=== PATIENT | male | born 1945 | race African-American/Black ===

== ENCOUNTER 2017-04-21 17:10 | Inpatient (IN) | payer OTHER ==
[~2017-04-21] VITALS: Ht 172.7 cm; Wt 93.4 kg
--- NOTE | ~2017-04-21 | HC ---
[facility] [place] [address] CONSULTATION Name: AISHA JIMENES Room #: 437-P [facility] IN M.R.#: [id number] Admission: 04/21/17 Attend Phys: Goi Meehan MD Discharge: Date of : 41 Report #: [id number] THIS REPORT FOR: //name// CC: Robbie Meehan REASON FOR CONSULTATION: End-stage renal disease. REASON FOR PRESENTATION: Mental status changes. HISTORY OF PRESENT ILLNESS: The patient actually not able to provide me with any history. He is confused. The details of the history were obtained from his medical chart and from whatever pieces of information we have on the [facility] dialysis unit. The patient is an end-stage renal disease, for unclear reasons. He was started on dialysis per the nursing notes 3 weeks ago. He resides at the [facility]. He was brought to the emergency room with mental status changes. The details of the history of scarce. He is known to have very advanced colon cancer with liver metastasis and lymph node involvement. The details of the therapy are not clear to me. Because of his hypotension on presentation, he was admitted to the Intensive Care Unit for further evaluation and management. Again, the details of the history are not really available at this point. He is not able to provide us with any information. PAST MEDICAL HISTORY: 1. Listed in his past medical history of peptic ulcer disease. 2. End-stage renal disease. 3. Gout. 4. Colon cancer with metastasis to the liver and lymph nodes. 5. Anemia. 6. Diabetes mellitus. 7. Hyperlipidemia. SOCIAL HISTORY: He resides at [facility]. No other details available. FAMILY HISTORY: Unknown. REVIEW OF SYSTEMS: Completely unobtainable given the patient history. MEDICATIONS: Listed in the [facility] is , Nephrocaps, docusate, atorvastatin, acetaminophen, Epogen, milk of magnesia, oxycodone. PHYSICAL EXAMINATION: GENERAL: He was disoriented to time and place, person. VITAL SIGNS: Blood pressure is currently 105/50. He is afebrile, pulse rate is 79 HEAD AND NECK: Dry mucous membranes. CHEST: No crackles. [facility] [address] [place] [address] CONSULTATION Name: AISHA JIMENES Room #: 437-P [facility] IN ..#: [id number] Admission: 04/21/17 Attend Phys: Gio Meehan MD Discharge: Date of : 41 Report #: [id number] CARDIOVASCULAR: Regular with no rub detected. ABDOMEN: Soft, nontender. LOWER EXTREMITIES: No edema. LABORATORY DATA: Reviewed. He has a white blood cell count of 28,000. Hemoglobin is 8.2. His chemistry from yesterday revealed a sodium of 136, potassium 4.1, BUN is 28 and a creatinine of 6.4. Urinalysis studies are not available. Head CT showed chronic age-related changes. Chest x-ray was clear. ASSESSMENT, IMPRESSION AND PLAN: 1. End-stage renal disease. 2. Metastatic stage IV lung cancer. 3. Acute mental status issue. 4. Leukocytosis. 5. Anemia. 6. Dialysis will be addressed as usual. 7. Obtain further details about the patient's history from the family. 8. Neurological workup. 9. Discontinue IV fluids. 10. Septic workup for his elevated white blood cell count. 11. Obtain oncological history regarding his lung status. If it is true that the patient has stage IV lung cancer, palliative and hospice care would seems to be reasonable. <ELECTRONICALLY SIGNED> By: Will Ferraro MD 04/25/17 0607 0537 0651 Narciso Lopez MD /nt
--- NOTE | ~2017-04-21 | HC ---
[facility] [place] [address] CONSULTATION Name: AISHA JIMENES Room #: 247-P ADM IN M.R.#: [id number] Admission: 04/21/17 Attend Phys: Gio Meehan MD Discharge: Date of : 41 Report #: [id number] THIS REPORT FOR: //name// CC: Robbie Meehan DATE OF SERVICE: 04/22/2017 DATE OF ADMISSION: 04/21/2017. DATE OF CONSULTATION: 04/22/2017. ATTENDING PHYSICIAN: Dr. Meehan. REASON FOR EVALUATION: Hospital/facility-related pneumonia in the setting of advanced age lung cancer. HISTORY OF PRESENT ILLNESS: Chart reviewed, patient examined. This is a 71-year-old man who resides at a facility who was noted to be more encephalopathic with confusion and agitation past few days. Also noted to have some poor p.o. 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 He is on chemotherapy. In addition to that, he has been on dialysis. At this point, he is unable to give too much history, more or less wants to be left alone. Denies significant amount of pain. Evaluation including chest x-ray showed a right pleural effusion with lower lobe consolidation. White count was elevated at 28,000. Lactic acid 2.2. He was then started on empiric antimicrobials, levofloxacin and piperacillin/tazobactam. He has been afebrile since admission. ALLERGIES: None known. CURRENT MEDICATIONS: Include ondansetron, oxycodone . He had a dose of levofloxacin and Zosyn. PAST MEDICAL HISTORY: As noted above. Also, has a history of colon cancer; end-stage renal disease, on dialysis thrice weekly; diabetes mellitus; hypertension; previous history of pneumonia. SOCIAL HISTORY: Former smoker. No ethanol. FAMILY HISTORY: Noncontributory. REVIEW OF SYSTEMS: Limited due to the patient's situation. PHYSICAL EXAMINATION: GENERAL: Chronically ill, undernourished. He is lying in right lateral [facility] [address] [place] [address] CONSULTATION Name: AISHA JIMENES Room #: 247-P [facility] IN ..#: [id number] Admission: 04/21/17 Attend Phys: Gio Meehan MD Discharge: Date of : 41 Report #: [id number] decubitus position. Somewhat disengaged. VITAL SIGNS: Temperature 97.5, pulse 79, respirations 15, blood pressure 105/50. SKIN: Warm, dry, no rashes. HEENT: Otherwise, unremarkable. NECK: Supple. LUNGS: Scattered coarse breath sounds. HEART: Regular, has a soft systolic murmur. ABDOMEN: Slightly distended, soft. There are no overt peritoneal signs. GENITOURINARY: Deferred. RECTAL: Deferred. LABORATORY DATA: Initial CBC: White count of 28.1, H and H 8.2 and 26.4, platelets of 315. Repeat showed a white count 26.5, hemoglobin 7, hematocrit 22.9, and platelets 272. Electrolytes: Sodium 137, potassium 4.3, chloride 102, bicarbonate is 27, anion gap of 8, BUN and creatinine 30 and 6.5. Lactic acid 2.2. Hepatic function, AST of 114, ALT of 29, albumin of 21, total protein of 7.7. IMAGING STUDIES: Chest x-ray showed right pleural effusion with right lower lobe consolidation. ASSESSMENT: Right-sided pneumonitis in the setting of multiorgan dysfunction including most recently encephalopathy, underlying medical issues are marked as well. We will continue combination of empiric antimicrobial therapy adjusted for his renal insufficiency dose with vancomycin, continue the Zosyn for now. I do not think sputum forthcoming at this point. We will see how he does clinically. I did encourage him to cough. He is certainly at risk for worsening clinical situation. We will follow expectantly. <ELECTRONICALLY SIGNED> By: Barry Brown MD 04/23/17 0501 0615 1917 Barry Brown MD /nt
--- NOTE | ~2017-04-21 | CNG ---
[facility] [place] [address] CYTO-NONGYN REPORT PROCEDURE Name: AISHA JIMENES Room #: 437-P ADM IN M.R.#: [id number] Admission: 04/21/17 Date of : 41 Discharge: Report #: [id number] Path Case #: [id number] CYTOPATHOLOGY REPORT COLLECTION DATE: 04/24/2017 RECEIVED DATE: 04/24/2017 SUBMITTING PHYS: Dr. Gio Meehan OTHER PHYS: Dr. Robbie Alvarez CLINICAL HISTORY: HCAP, Elevated trop SPECIMEN(S) RECEIVED: A.Fluid, Chest * * * * * * * * * * * * FINAL DIAGNOSIS: A. Chest Fluid: - No malignant cells identified. Rare mesothelial cells are present in a background of inflammatory cells and bloody debris. PATHOLOGIST: Dali Pop M.D. REPORT ELECTRONICALLY SIGNED BY: Dali Pop M.D. DATE/TIME: 04/25/2017 15:15 * * * * * * * * * * * * GROSS PATHOLOGY: A. Fluid, Chest: The specimen is submitted unfixed, labeled "Aisha Jimenes". Received by the Cytology Department is 15 mL of cloudy red fluid. One ThinPrep slide and a cell block were prepared. (mm 04.24.2017) LAST CODE STRIPER(S): GOMEZ Duque(ASCP) INITIAL CPT CODE(S): A; 32822, 12552 Professional services performed by [facility] at [facility] [address], [place] [address] Technical services performed by [facility] at [address] [place] [address]., [address], [place] [address]. [facility] [address] [place] [address], [address] [place] [address] PHONE: [phone] [facility] [address] [place] [address] CYTO-NONGYN REPORT PROCEDURE Name: AISHA JIMENES Room #: 437-P ADM IN M.R.#: [id number] Admission: 04/21/17 Date of : 41 Discharge: Report #: [id number] Path Case #: [id number] DIRECTOR: Jesu Avila M.D. * * * END OF REPORT * * *
--- NOTE | ~2017-04-21 | H ---
[facility] [address] [place] [address] HISTORY AND PHYSICAL Name: AISHA JIMENES Room #: 247-P ADM IN M.R.#: [id number] Admission: 04/21/17 Attend Phys: Gio Meehan MD Discharge: Date of : 41 Report #: [id number] THIS REPORT FOR: //name// CC: Robbie Meehan DATE OF SERVICE: 04/21/2017 HISTORY OF PRESENT ILLNESS: The patient is a 71-year-old gentleman transferred from [facility] facility for evaluation of weakness. His history is limited speak to his nursing staff at the facility to understand this history. Apparently, DICTATION ENDS HERE <ELECTRONICALLY SIGNED> By: Gio Meehan MD 04/23/17 0834 0854 1027 Gio Meehan MD /nt
--- NOTE | ~2017-04-21 | D ---
[facility] [place] [address] DISCHARGE SUMMARY Name: AISHA JIMENES Room #: 437-P [facility] IN M.R.#: [id number] Admission: 04/21/17 Attend Phys: Gio Meehan MD Discharge: 04/26/17 Date of : 41 Report #: [id number] THIS REPORT FOR: //name// CC: Robbie Meehan FINAL DIAGNOSES: 1. Sepsis. 2. Healthcare-associated pneumonia. 3. Right pleural effusion. 4. End-stage renal disease. 5. Metastatic carcinoma. 6. Anemia of chronic disease. HOSPITAL COURSE: The patient was admitted with weakness and shortness of breath and diagnosed with sepsis through ER and admitted to ICU. Antibiotics were started and the renal service managed dialysis. He has a known history of metastatic carcinoma that is untreatable based on reports and history from [facility] where he had previously been receiving care. There were no treatment plans here for that. He did have a CT of the chest, which showed a large right pleural effusion. He underwent thoracentesis and had 1500 mL approximately removed. Cytology was negative. Cultures were still pending. I felt this was the source of his weakness. PHYSICAL EXAMINATION: GENERAL: On the day of discharge, he was awake and alert. VITAL SIGNS: Stable. LUNGS: Clear, but diminished in the right base. HEART: Regular. ABDOMEN: Soft, normoactive bowel sounds with palpable masses. EXTREMITIES: Showed no edema. DISPOSITION: Return to [facility] for continued hemodialysis, PT and OT. Follow up with Dr. Alvarez. I signed his medications. Given history of cancer, this appears terminal and his condition is guarded at best. We recommend that his family and the patient reassess his code status situation and it appears he has intractable cancer. <ELECTRONICALLY SIGNED> By: Gio Meehan MD 04/27/17 1145 1250 1344 Gio Meehan MD /nt
--- NOTE | ~2017-04-21 | EKG ---
[place] [address] [facility] [place] [address] ELECTROCARDIOGRAM REPORT Name: AISHA JIMENES Room #: 247-P ADM IN M.R.#: [id number] Admission: 04/21/17 Attend Phys: Gio Meehan MD Discharge: Date of : 41 Report #: [id number] THIS REPORT FOR: //name// [facility] ED Test Date: 2017-04-21 Test Time: 17:18:16 Pat Name: AISHA JIMENES Department: Room: [facility] Gender: M Location Director: [id number] : 1945 Requested By: Karina Sanchez Order Number: [id number] MD: Ajit Winn Measurements Intervals [place] Rate: 75 P: 53 ME: 190 QRS: -15 QRSD: 102 T: 147 QT: 370 QTc: 414 Interpretive Statements Sinus rhythm Probable LVH with secondary repol abnrm Inferior infarct, old Baseline wander in lead(s) V2 No previous ECG available for comparison Electronically Signed On 04-22-2017 10:11:22 CDT by Ajit Winn [email or web address] <ELECTRONICALLY SIGNED> By: Ajit Winn MD, [facility] 04/22/17 1011 17 17 Ajit Winn MD, [facility] /EPI
[2017-04-21 17:10] VITALS: BP 111/41
[2017-04-21] MEDS ORDERED: PACERONE 200 M200 MG PO (17:27)
[2017-04-21 17:28] LABS: HEMATOCRIT 26.4 % (42.0-52.0); HEMOGLOBIN 8.2 gm/dL (14.0-18.0); MCH 22.1 pg (26.0-34.0); MCHC 30.9 g/dL (28.0-37.0); MCV 71.5 fL (80.0-100.0); PLATELET COUNT 315 thou/uL (150-400); RBC 3.69 mil/uL (4.50-6.00); RDW 21.4 % (10.5-14.5); WBC 28.1 thou/uL (4.0-11.0)
[2017-04-21] MEDS ORDERED: BISAC-EVAC10 MG RC (17:28)
[2017-04-21] MEDS ORDERED: NEPHRO-VITE TA0.8 MG PO (17:28)
[2017-04-21 17:29] LABS: MANUAL DIFF YES
[2017-04-21] MEDS ORDERED: MIRALAX17 GM PO (17:29)
[2017-04-21] MEDS ORDERED: COLACE100 MG PO (17:29)
[2017-04-21] MEDS ORDERED: IPRAT-ALBUT 0.5-3 ML IH (17:30)
[2017-04-21] MEDS ORDERED: LIPITOR40 MG PO (17:30)
[2017-04-21] MEDS ORDERED: APAP500 PO (17:31)
[2017-04-21] MEDS ORDERED: BENADRYL25 MG PO (17:32)
[2017-04-21] MEDS ORDERED: EPOGEN10000 UNIT IJ (17:32)
[2017-04-21] MEDS ORDERED: HEPARIN 5,5000 UNIT/ SUBQ (17:33)
[2017-04-21] MEDS ORDERED: MILK OF MA2400 MG/10 PO (17:33)
[2017-04-21] MEDS ORDERED: ONDANSETRON HCL4 M2 PO (17:34)
[2017-04-21] MEDS ORDERED: OXYCODONE HCL 55 MG PO (17:34)
[2017-04-21] MEDS ORDERED: 12 HOUR NASAL R15 ML NS (17:35)
[2017-04-21] MEDS ORDERED: VASELINE18 ML TP (17:36)
[2017-04-21 17:39] LABS: CALCIUM 8.6 mg/dL (8.5-10.1); CREATININE 6.4 mg/dL (0.7-1.3); POTASSIUM 4.1 mmol/L (3.5-5.1)
[2017-04-21 17:49] LABS: ABSOLUTE NEUTROPHILS 25.3 thou/uL (1.4-8.2); ANISOCYTOSIS 3+; MACROCYTES 1+; MICROCYTES 2+; NUCLEATED RBCS 1 /100WBC; POLYCHROMASIA OCCASIONAL; TARGET CELLS 2+; TOTAL CELL COUNT 100
[2017-04-21 17:50] LABS: HYPOCHROMASIA 1+; OVALOCYTES OCCASIONAL; POIKILOCYTOSIS 1+
[2017-04-21 17:57] LABS: ALBUMIN 2.1 g/dL (3.4-5.0); ALKALINE PHOSPHATASE 268 U/L (46-116); DIRECT BILIRUBIN < 0.1 mg/dL (<0.1-0.3); SGOT 114 U/L (15-37); SGPT 29 U/L (30-65); TOTAL BILIRUBIN 0.3 mg/dL (<0.1-1.0); TOTAL PROTEIN 7.7 g/dL (6.4-8.2)
[2017-04-21 23:25] VITALS: BP 105/50
[2017-04-21 23:53] VITALS: BP 97/67
[2017-04-22] VITALS (41 sets, daily range): BP systolic 83–132; BP diastolic 42–63
[2017-04-22 05:58] LABS: HEMATOCRIT 22.9 % (42.0-52.0); MCH 22.1 pg (26.0-34.0); MCHC 30.4 g/dL (28.0-37.0); MCV 72.7 fL (80.0-100.0); RBC 3.15 mil/uL (4.50-6.00); RDW 21.5 % (10.5-14.5); WBC 26.5 thou/uL (4.0-11.0)
[2017-04-22 06:02] LABS: CALCIUM 7.8 mg/dL (8.5-10.1); CREATININE 6.5 mg/dL (0.7-1.3); POTASSIUM 4.3 mmol/L (3.5-5.1)
[2017-04-23] VITALS (14 sets, daily range): BP systolic 11–128; BP diastolic 44–70
[2017-04-24 04:00] VITALS: BP 99/48
[2017-04-24 04:57] LABS: HEMATOCRIT 22.6 % (42.0-52.0); HEMOGLOBIN 7.1 gm/dL (14.0-18.0); MCH 22.3 pg (26.0-34.0); MCHC 31.3 g/dL (28.0-37.0); MCV 71.4 fL (80.0-100.0); PLATELET COUNT 277 thou/uL (150-400); RBC 3.17 mil/uL (4.50-6.00); RDW 21.9 % (10.5-14.5); WBC 27.7 thou/uL (4.0-11.0)
[2017-04-24 05:02] LABS: MANUAL DIFF YES
[2017-04-24 05:40] LABS: ABSOLUTE NEUTROPHILS 23.3 thou/uL (1.4-8.2); ANISOCYTOSIS 2+; MICROCYTES 1+; TOTAL CELL COUNT 100
[2017-04-24 05:41] LABS: HYPOCHROMASIA 2+
[2017-04-24 08:37] VITALS: BP 100/43
[2017-04-24 10:52] LABS: INR 1.2; PROTIME 12.6 Seconds (9.3-11.4)
[2017-04-24 13:23] LABS: BF NUCLEATED CELLS 699; BF RBC 147092; CLARITY CLOUDY; COLOR RED; MANUAL DIFF YES; TOTAL VOLUME 65 mL
[2017-04-24 17:14] LABS: BF MACROPHAGE 25; BF NEUTROPHILS 53
[2017-04-24 17:15] LABS: BF COMMENTS 1 MONOCYTE
[2017-04-24 17:16] VITALS: BP 92/38
[2017-04-24 20:40] VITALS: BP 101/45
[2017-04-25 05:26] LABS: HEMATOCRIT 22.8 % (42.0-52.0); HEMOGLOBIN 7.2 gm/dL (14.0-18.0); MCHC 31.3 g/dL (28.0-37.0); MCV 70.3 fL (80.0-100.0); RBC 3.25 mil/uL (4.50-6.00); RDW 20.8 % (10.5-14.5); WBC 26.2 thou/uL (4.0-11.0)
[2017-04-25 05:38] VITALS: BP 111/40
[2017-04-25 05:40] LABS: ALBUMIN 1.6 g/dL (3.4-5.0); CALCIUM 7.8 mg/dL (8.5-10.1); PHOSPHORUS 2.9 mg/dL (2.5-4.9); POTASSIUM 4.1 mmol/L (3.5-5.1)
[2017-04-25 11:32] VITALS: BP 102/33
[2017-04-25 15:07] LABS: BODY FLUID ALBUMIN 1.2 g/dL (()); BODY FLUID AMYLASE 59 U/L (()); BODY FLUID GLUCOSE 109 mg/dL (()); BODY FLUID LDH 507 IU/L (()); BODY FLUID PROTEIN 3.1 g/dL (())
[2017-04-25 16:47] VITALS: BP 95/36
[2017-04-25 19:17] VITALS: BP 103/40
[2017-04-26 03:50] VITALS: BP 95/41
[2017-04-26 08:36] VITALS: BP 112/50
[2017-04-26] MEDS ORDERED: HYDROCODONE-APA1 TA1 PO (12:44)
[2017-04-26] MEDS ORDERED: LACTULOSE10 GM/153 PO (12:44)
[2017-04-26] MEDS ORDERED: AUGMENTIN 875875 MG PO (12:46)
== END 2017-04-26 16:15 | DRG 871 ==
LOC: ER 17:10 → 4S 19:05 → EROBS 19:05 → ICU 19:05 → 4S 04-23 11:05
PROVIDERS: Emergency Medicine; Internal Medicine Geriatric Medicine; Internal Medicine Nephrology; Specialist
PROC: 0W993ZX Drainage of Right Pleural Cavity, Percutaneous Approach, Diagnostic (ICD-10-PCS; 2017-04-24)
PROC: 5A1D60Z (ICD-10-PCS; principal; 2017-04-25)
DX: A41.9 Sepsis, unspecified organism (principal); J18.9 Pneumonia, unspecified organism; N18.6 End stage renal disease; G93.40 Encephalopathy, unspecified; I12.0 Hypertensive chronic kidney disease with stage 5 chronic kidney disease or end stage renal disease; C34.90 Malignant neoplasm of unspecified part of unspecified bronchus or lung; J90 Pleural effusion, not elsewhere classified; M10.9 Gout, unspecified; E11.22 Type 2 diabetes mellitus with diabetic chronic kidney disease; Y95 Nosocomial condition; E78.5 Hyperlipidemia, unspecified; D63.1 Anemia in chronic kidney disease; Z99.2 Dependence on renal dialysis; Z85.038 Personal history of other malignant neoplasm of large intestine; Z85.05 Personal history of malignant neoplasm of liver; Z79.899 Other long term (current) drug therapy; Z87.891 Personal history of nicotine dependence; Z87.11 Personal history of peptic ulcer disease
CPT/HCPCS: 10102; 10203; 32100